=== PATIENT | female | born 1935 | race Caucasian/White ===

== ENCOUNTER 2018-01-02 19:08 | Emergency (ER) | payer MEDICARE, SELFPAY ==
[2018-01-02 20:07] LABS: #Basophils 0.1 thou/uL (0.0-0.2); #Eosinphils 0.1 thou/uL (0.0-0.7); #Monocytes 0.6 thou/uL (0.11-0.59); #Neutrophils 7.9 thou/uL (1.40-6.50); %Basophils 0.6 % (0.0-1.0); %Eosinophils 0.8 % (0.0-10.0); %Lymphocytes 10.4 % (21.0-51.0); %Monocytes 6.3 % (0.0-10.0); %Neutrophils 81.9 % (42.0-75.0); Hemoglobin 15.4 g/dL (12.0-16.0); Mean Corpuscular HGB CONC 34.3 g/dL (32.0-36.0); Mean Corpuscular Hemoglobin 31.5 pg (27.0-31.0); Mean Corpuscular Volume 91.8 fl (81.0-99.0); Mean Platelet Volume 10.8 fL (7.4-10.4); PLT Morphology Comment Appears Adequate; Platelet Count 119 thou/uL (130-400); RBC Distribution Width 12.6 % (11.5-14.5); Red Blood Cell (RBC) Count 4.89 mill/uL (4.20-5.40); White Blood Cell (WBC) Count 9.6 thou/uL (4.8-10.8)
[2018-01-02 20:11] LABS: ALT (SGPT) 17 U/L (8-55); AST (SGOT) 19 U/L (5-34); Albumin 3.9 g/dL (3.4-4.8); Alkaline Phosphatase 83 U/L (40-150); Anion Gap 15 mmol/L (10-20); BUN (Urea Nitrogen) 32 mg/dL (9.8-20.1); Bilirubin, Total 0.4 mg/dL (0.2-1.2); CK (CPK) 129 U/L (29-168); Calc. Creatinine Clearance 0 mL/min (70-130); Calcium 9.4 mg/dL (7.8-10.44); Carbon Dioxide 29 mmol/L (23-31); Chloride 103 mmol/L (98-107); Estimated GFR-MDRD 46; Globulin 3.5 g/dL (2.4-3.5); Glucose 159 mg/dL (83-110); Potassium 4.4 mmol/L (3.5-5.1); Protein, Total 7.4 g/dL (6.0-8.3); Sodium 143 mmol/L (136-145)
[2018-01-02 20:12] LABS: CKMB 2.3 ng/mL (0-6.6); Troponin I Less than 0.010 ng/mL (< 0.028)
--- NOTE | 2018-01-02 20:17 | CT ---
CT BRAIN WITHOUT CONTRAST: 01/02/18 HISTORY: Fall without loss of consciousness, dementia, aphasia. FINDINGS: Comparison is made with exam of 08/11/16. Changes of cortical atrophy and chronic small vessel ischemic disease are again seen. The ventricular size is stable and the basilar cisterns patent. no evidence of acute infarct, hemorrhage, midline sh ift or abnormal extra-axial fluid collections are seen. The bony calvarium is intact. The visualized paranasal sinuses and mastoid air cells are well aerated. IMPRESSION: Stable exam. No CT evidence of acute intracranial process. POS: [facility]
--- NOTE | 2018-01-02 20:19 | CT ---
CT CERVICAL SPINE WITH CORONAL AND SAGITTAL REFORMATIONS 01/02/18 HISTORY: Fall, neck pain. FINDINGS/IMPRESSION: There is loss of cervical lordosis with mild reversal. Multilevel degenerative changes are present. N o acute fracture is seen. There is minimal anterolisthesis of C4 over C5 vertebral bodies. POS: [facility]
--- NOTE | 2018-01-02 20:39 | RAD ---
LEFT HIP RADIOGRAPHS TWO VIEWS: 01/02/18 PROVIDED CLINICAL HISTORY: Fall. FINDINGS: Examination is somewhat limited due to lack of routine positioning. There is no evidence for fracture or other acute osseous abnormality. If there persistent clinical concern, conservative management an d followup imaging are advised. IMPRESSION: As above. POS: [facility]
--- NOTE | 2018-01-02 20:41 | RAD ---
PORTABLE CHEST 01/02/18 PROVIDED CLINICAL HISTORY: Fall. FINDINGS: Comparison 12/31/05. The cardiac and mediastinal silhouette is unchanged in appearance. Tortuosity of the thoracic aorta i s seen. Vascular calcification is prominent. No focal consolidation, pleural fluid or pneumothorax ap parent. IMPRESSION: No evidence for an acute cardiopulmonary process. POS: [facility]
[2018-01-02 21:10] LABS: Bilirubin Negative (Negative); Blood, Urine Moderate (Negative); Clarity Clear (Clear); Glucose, Urine (Dipstick) Negative (Negative); Leukocyte Trace (Negative); Nitrite Positive (Negative); Protein, Urine (Dipstick) Negative (Neg-Trace); Specific Gravity, Urine 1.015 (1.005-1.030); Urobilinogen 0.2 mg/dL (0.2-1.0)
[2018-01-02 21:14] LABS: Bacteria/HPF 3+ HPF (None Seen); Hyaline Casts/LPF 0-3 HYALINE CAST LPF (0-3 Hyaline); Squamous Epithelial 0-3 HPF (0-3)
[2018-01-02] MEDS ORDERED: Nitrofurantoin Macrocrystal 50 MG CAP ONE (21:50)
== END 2018-01-02 22:04 | disposition home or self-care (01) ==
LOC: SCSER 19:08
DX: S70.02XA Contusion of left hip, initial encounter (principal); N39.0 Urinary tract infection, site not specified; F03.90 Unspecified dementia, unspecified severity, without behavioral disturbance, psychotic disturbance, mood disturbance, and anxiety; E03.9 Hypothyroidism, unspecified; Z79.899 Other long term (current) drug therapy; W19.XXXA Unspecified fall, initial encounter
CPT/HCPCS: 51701; 70450; 71045; 72125; 80053; 81003; 81015; 82550; 82553; 83605; 84484; 85025; 87077; 87086; 87186; 93005; 96360; 96361; A4353

== ENCOUNTER 2018-02-26 09:24 | Emergency (ER) | payer MEDICARE ==
--- NOTE | 2018-02-26 11:11 | RAD ---
TWO VIEWS RIGHT TIBIA AND FIBULA: History: Fall last night with pain in the right leg. FINDINGS: Two views of the right tibia and fibula shows no evidence of acute fracture or dislocation. No degene rative change is seen in the knee or ankle. No focal soft tissue swelling is seen. IMPRESSION: Unremarkable exam. POS: [facility]
--- NOTE | 2018-02-26 11:13 | RAD ---
TWO VIEWS RIGHT FEMUR: Comparison: None. History: Fall last night with right femur pain? FINDINGS: Two views of the right femur shows no evidence of acute fracture or dislocation. No degenerative larkin ges are seen in the hip or knee. Vascular calcifications are present. IMPRESSION: NO evidence of acute osseous abnormality. POS: [facility]
--- NOTE | 2018-02-26 11:15 | RAD ---
THREE VIEWS OF THE RIGHT FOOT: Comparison: Right foot pain after fall last night. FINDINGS: Three views of the right foot shows no evidence of acute fracture or dislocation. There is first meta tarsal head hyperplasia and hallux valgus deformity of the great toe. No focal soft tissue swelling i s seen. IMPRESSION: No evidence of acute osseous abnormality. POS: [facility]
== END 2018-02-26 11:31 | disposition home or self-care (01) ==
LOC: SCSER 09:24
DX: S01.81XA Laceration without foreign body of other part of head, initial encounter (principal); E03.9 Hypothyroidism, unspecified; F03.90 Unspecified dementia, unspecified severity, without behavioral disturbance, psychotic disturbance, mood disturbance, and anxiety; Z79.899 Other long term (current) drug therapy; W19.XXXA Unspecified fall, initial encounter

== ENCOUNTER 2020-02-27 23:02 | Emergency (ER) | payer MEDICARE, MEDICAID ==
[2020-02-28] MEDS ORDERED: Ondansetron PF 4 MG/2 ML Vial ONE (00:02)
[2020-02-28 00:16] LABS: #Eosinphils 0.1 thou/uL (0.0-0.7); #Monocytes 0.9 thou/uL (0.11-0.59); #Neutrophils 3.9 thou/uL (1.40-6.50); %Basophils 0.4 % (0.0-1.0); %Eosinophils 1.7 % (0.0-10.0); %Lymphocytes 16.8 % (21.0-51.0); %Monocytes 14.6 % (0.0-10.0); %Neutrophils 66.5 % (42.0-75.0); Hemoglobin 15.3 g/dL (12.0-16.0); Mean Corpuscular HGB CONC 32.7 g/dL (32.0-36.0); Mean Corpuscular Hemoglobin 32.1 pg (27.0-31.0); Mean Corpuscular Volume 98.3 fL (78.0-98.0); Mean Platelet Volume 11.1 fL (7.4-10.4); Platelet Count 117 thou/uL (130-400); RBC Distribution Width 12.6 % (11.5-14.5); Red Blood Cell (RBC) Count 4.77 mill/uL (4.20-5.40); White Blood Cell (WBC) Count 5.8 thou/uL (4.8-10.8)
[2020-02-28 00:43] LABS: Bacteria/HPF 4+ HPF (None Seen); Bilirubin Negative (Negative); Blood, Urine Trace (Negative); Clarity Turbid (Clear); Glucose, Urine (Dipstick) Normal (Negative); Leukocyte 500 Leu/uL (Negative); Nitrite 2+ (Negative); Protein, Urine (Dipstick) 50 mg/dL (Neg-Trace); RBC/HPF 0-3 HPF (0-3); Urobilinogen Normal mg/dL (Less than 2); WBC/HPF Greater than 50 HPF (0-3)
[2020-02-28 00:53] LABS: ALT (SGPT) 13 U/L (8-55); AST (SGOT) 24 U/L (5-34); Albumin 3.7 g/dL (3.4-4.8); Alkaline Phosphatase 88 U/L (40-110); Anion Gap 14 mmol/L (10-20); BUN (Urea Nitrogen) 50 mg/dL (9.8-20.1); Bilirubin, Total 0.4 mg/dL (0.2-1.2); Calc. Creatinine Clearance 0 mL/min (70-130); Calcium 8.9 mg/dL (7.8-10.44); Carbon Dioxide 33 mmol/L (23-31); Chloride 104 mmol/L (98-107); Estimated GFR-MDRD 30; Globulin 4.2 g/dL (2.4-3.5); Glucose 138 mg/dL (83-110); Potassium 4.8 mmol/L (3.5-5.1); Protein, Total 7.9 g/dL (6.0-8.3); Sodium 146 mmol/L (136-145)
--- NOTE | 2020-02-28 07:37 | CT ---
PRELIMINARY REPORT/DIRECT RADIOLOGY/EMERGENCY AFTER HOURS PROCEDURE EXAM: CT Abdomen and Pelvis with Intravenous Contrast CLINICAL HISTORY: PT DAUGHTER STATES PT HAS BEEN VOMITING AND HAVING DIARRHEA SINCE LAINE DENIES FEV ER PCP TOLD PT TO COME IN AND SEE IF SHE NEEDS FLUIDS. COMPARISON: None provided. FINDINGS: LUNG BASES: Dependent hypoventilatory changes and linear atelectasis/scarring in the visualized lung bases. Coronary artery calcifications. LIVER: Small scattered liver hypodensities, which are either cystic or too small to accurately charac terize. GALLBLADDER AND BILE DUCTS: Cholelithiasis. No biliary ductal dilatation. PANCREAS: Top normal caliber pancreatic duct. No focal lesion. SPLEEN: Unremarkable. ADRENAL GLANDS: Small indeterminate left adrenal 2.3 cm nodule. KIDNEYS, URETERS, AND BLADDER: No obstructing radiopaque renal calculus or evidence of hydronephrosis . Small hypodense renal lesions bilaterally, which are either cystic or too small to accurately gay cterize. STOMACH AND BOWEL: Nonspecific fluid-filled slightly hyperemic loops of normal caliber small bowel. N o evidence of bowel obstruction. Moderate rectal fecal retention. Scattered colonic diverticula. Smal l hiatal hernia. APPENDIX: Not visualized. PERITONEUM: No free air or sizable fluid collection. REPRODUCTIVE: Fluid-filled endometrium measuring up to 7 mm in caliber, which is abnormal for a patie nt of this age. VASCULATURE: Severe aortoiliac atherosclerotic calcifications. Proximal infrarenal abdominal aortic a neurysm measuring up to 3.11 cm in caliber and distal infrarenal abdominal aortic aneurysm measuring up to 5.3 cm in caliber. BONES: Age-indeterminate T12 wedge compression fracture with adjacent mild central spinal narrowing. ABDOMINAL WALL AND SOFT TISSUES: Unremarkable. IMPRESSION: 1. Suggestion of low-grade enteritis. No evidence of bowel obstruction. Scattered colonic diverticula . 2. Cholelithiasis. No biliary ductal dilatation. 3. Age-indeterminate T12 wedge compression fracture with adjacent mild central spinal narrowing. 4. Fluid-filled endometrium measuring up to 7 mm in caliber, which is abnormal for a patient of this age. Nonemergent pelvic ultrasound can be performed for further characterization. 5. Infrarenal 3.1 cm and 5.3 cm caliber aortic aneurysms. Follow-up CTA abdomen-pelvis is recommended in 3-6 months. See final report for any additional/alternative nonemergent follow-up recommendations . 6. Small indeterminate left adrenal 2.3 cm nodule. Nonemergent dedicated CT/MRI abdomen can be perfo rmed for further characterization. ELECTRONICALLY SIGNED BY: Fermin Pratt MD Feb 28, 2020 2:29:55 AM CDT FINAL REPORT I agree with the preliminary report provided. There is an infrarenal abdominal aortic aneurysm measuring 5.4 cm. There are bilateral renal cysts. There is a left adrenal nodule that is incompletely characterized on the current exam. There are scattered hepatic cysts. The spleen is normal-appearing. The visualized aspects of the pa ncreas appear within normal limits. There are multiple gallstones within the gallstones. The small bowel is of normal caliber. There is a mild amount of retained stool within the colon. Low-density fluid is seen within the endometrium which is unusual for a patient of this age. Followu p pelvic ultrasound may be helpful. There is also some slight accentuation of the left adnexa that r equires further interrogation. The bladder is partially decompressed. The T12 compression fracture detailed above that was present on a comparison chest radiograph from [facility] of 2018 is chronic. POS:
[2020-02-28] MEDS ORDERED: Iopamidol-370 76% 500 ML 1 ML ONE (15:27)
== END 2020-02-28 03:55 | disposition home or self-care (01) ==
LOC: ERS 23:02
DX: N39.0 Urinary tract infection, site not specified (principal); E86.0 Dehydration; R19.7 Diarrhea, unspecified; E03.9 Hypothyroidism, unspecified; F03.90 Unspecified dementia, unspecified severity, without behavioral disturbance, psychotic disturbance, mood disturbance, and anxiety; R11.2 Nausea with vomiting, unspecified; Z87.891 Personal history of nicotine dependence; Z79.899 Other long term (current) drug therapy
CPT/HCPCS: 36415; 51701; 74177; 80053; 81003; 81015; 83690; 85025; 87040; 87077; 87086; 87186; 93005; 96361; 96365; 96375; J1956; J2405; Q9967

== ENCOUNTER 2020-05-07 22:18 | Emergency (ER) | payer MEDICARE, OTHER ==
[2020-05-07 22:54] LABS: #Basophils 0.1 thou/uL (0.0-0.2); #Eosinphils 0.2 thou/uL (0.0-0.7); #Lymphocytes 1.8 thou/uL (1.20-3.40); #Monocytes 0.7 thou/uL (0.11-0.59); #Neutrophils 3.9 thou/uL (1.40-6.50); %Eosinophils 3.5 % (0.0-10.0); %Lymphocytes 26.5 % (21.0-51.0); %Neutrophils 57.9 % (42.0-75.0); Hemoglobin 13.9 g/dL (12.0-16.0); Mean Corpuscular HGB CONC 32.9 g/dL (32.0-36.0); Mean Corpuscular Hemoglobin 31.8 pg (27.0-31.0); Mean Corpuscular Volume 96.8 fL (78.0-98.0); Platelet Count 125 thou/uL (130-400); RBC Distribution Width 12.4 % (11.5-14.5); Red Blood Cell (RBC) Count 4.38 mill/uL (4.20-5.40); White Blood Cell (WBC) Count 6.6 thou/uL (4.8-10.8)
[2020-05-07 22:55] LABS: Bilirubin Negative (Negative); Blood, Urine Negative (Negative); Clarity Clear (Clear); Glucose, Urine (Dipstick) Normal (Negative); Ketone, Urine Negative (Negative); Leukocyte Negative Leu/uL (Negative); Nitrite Negative (Negative); Protein, Urine (Dipstick) Negative (Neg-Trace); Specific Gravity, Urine 1.022 (1.002-1.036); Urobilinogen Normal mg/dL (Less than 2)
[2020-05-07 23:16] LABS: ALT (SGPT) 11 U/L (8-55); AST (SGOT) 15 U/L (5-34); Albumin 3.4 g/dL (3.4-4.8); Alkaline Phosphatase 71 U/L (40-110); Anion Gap 14 mmol/L (10-20); BUN (Urea Nitrogen) 38 mg/dL (9.8-20.1); Bilirubin, Total 0.3 mg/dL (0.2-1.2); Calc. Creatinine Clearance 0 mL/min (70-130); Calcium 8.5 mg/dL (7.8-10.44); Carbon Dioxide 29 mmol/L (23-31); Chloride 102 mmol/L (98-107); Estimated GFR-MDRD 44; Globulin 3.3 g/dL (2.4-3.5); Glucose 89 mg/dL (83-110); Potassium 4.7 mmol/L (3.5-5.1); Protein, Total 6.7 g/dL (6.0-8.3); Sodium 140 mmol/L (136-145)
== END 2020-05-08 00:34 | disposition home or self-care (01) ==
LOC: ERS 22:18
DX: R53.1 Weakness (principal); G30.9 Alzheimer's disease, unspecified; F02.80 Dementia in other diseases classified elsewhere, unspecified severity, without behavioral disturbance, psychotic disturbance, mood disturbance, and anxiety; E03.9 Hypothyroidism, unspecified; Z87.891 Personal history of nicotine dependence; Z79.899 Other long term (current) drug therapy
CPT/HCPCS: 51701; 80053; 81003; 83605; 84484; 85025; 87086; 93005; 96360

== ENCOUNTER 2021-09-17 08:04 | Outpatient (CLI) | payer MEDICARE | END 2021-09-17 08:05 | disposition home or self-care (01) | LOC: BICULT 08:04 | PROVIDERS: ATTEND Family Medicine | DX: Z13.6 Encounter for screening for cardiovascular disorders (principal); I71.4 Abdominal aortic aneurysm, without rupture | CPT/HCPCS: 76775 ==

== ENCOUNTER 2021-09-30 14:05 | Inpatient (IN) | payer MEDICARE, OTHER ==
[~2021-09-30 14:05] MED LIST: Iopamidol 370 76% 50 ML VIAL FS ONE
[2021-09-30 15:19] LABS: #Eosinphils 0.1 thou/uL (0.0-0.7); #Lymphocytes 0.7 thou/uL (1.20-3.40); #Monocytes 0.4 thou/uL (0.11-0.59); #Neutrophils 8.1 thou/uL (1.40-6.50); %Basophils 0.1 % (0.0-1.0); %Lymphocytes 7.6 % (21.0-51.0); %Monocytes 4.1 % (0.0-10.0); %Neutrophils 87.2 % (42.0-75.0); Hemoglobin 14.3 g/dL (12.0-16.0); Mean Corpuscular HGB CONC 32.2 g/dL (32.0-36.0); Mean Corpuscular Hemoglobin 31.3 pg (27.0-31.0); Mean Corpuscular Volume 97.1 fL (78.0-98.0); Platelet Count 121 thou/uL (130-400); RBC Distribution Width 12.1 % (11.5-14.5); Red Blood Cell (RBC) Count 4.58 mill/uL (4.20-5.40); White Blood Cell (WBC) Count 9.3 thou/uL (4.8-10.8)
[2021-09-30 15:45] LABS: ALT (SGPT) 8 U/L (8-55); AST (SGOT) 14 U/L (5-34); Albumin 3.6 g/dL (3.4-4.8); Alkaline Phosphatase 89 U/L (40-110); Anion Gap 16 mmol/L (10-20); BUN (Urea Nitrogen) 15 mg/dL (9.8-20.1); Bilirubin, Total 0.6 mg/dL (0.2-1.2); Calc. Creatinine Clearance 0 mL/min (70-130); Calcium 8.9 mg/dL (7.8-10.44); Carbon Dioxide 26 mmol/L (23-31); Chloride 100 mmol/L (98-107); Globulin 3.5 g/dL (2.4-3.5); Glucose 160 mg/dL (83-110); Lipase 45 U/L (8-78); Magnesium 1.9 mg/dL (1.6-2.6); Potassium 4.8 mmol/L (3.5-5.1); Protein, Total 7.1 g/dL (5.8-8.1); Sodium 137 mmol/L (136-145)
[2021-09-30 16:01] LABS: Bilirubin Negative (Negative); Blood, Urine 2+ (Negative); Clarity Extra Turbid (Clear); Glucose, Urine (Dipstick) Normal (Negative); Ketone, Urine Negative (Negative); Leukocyte 500 Leu/uL (Negative); Nitrite 2+ (Negative); Protein, Urine (Dipstick) 50 mg/dL (Neg-Trace); Specific Gravity, Urine 1.016 (1.002-1.036); Urobilinogen Normal mg/dL (Less than 2)
[2021-09-30 16:08] LABS: WBC/HPF Greater Than 50 HPF (0-3)
[2021-09-30 16:09] LABS: Bacteria/HPF 4+ HPF (None Seen); Squamous Epithelial 0-3 HPF (0-3)
[2021-09-30] MEDS ORDERED: cefTRIAXone\\ROCEPHIN 1 GM VIAL ONE (17:34)
[2021-09-30] MEDS ORDERED: Vancomycin 1 GM/200 ML BAG ONE (17:34)
[2021-09-30] MEDS ORDERED: Boudreaux's Butt Paste 60 GM TUBE TOP PRN (19:42)
[2021-09-30] MEDS ORDERED: hydrALAZINE 20 MG/ML VIAL SLOW IVP PRN (19:43)
[2021-09-30] MEDS ORDERED: Dextrose 5% in Water 1,000 ML IV PRN (19:45)
[2021-09-30] MEDS ORDERED: Dextrose 50% Abboject 50 ML SYRINGE SLOW IVP PRN (19:45)
[2021-09-30] MEDS ORDERED: Electrolyte Replacement Protocol 1 EACH FS SCH (19:45)
[2021-09-30] MEDS ORDERED: Acetaminophen 650 MG Suppository PR PRN (19:46)
[2021-09-30] MEDS ORDERED: Ondansetron PF 4 MG/2 ML Vial IVP PRN (19:46)
[2021-09-30] MEDS ORDERED: Acetaminophen 325 MG TAB PO PRN (19:46)
[2021-09-30] MEDS ORDERED: Ondansetron ODT 4 MG TAB PO PRN (19:46)
[2021-09-30] MEDS ORDERED: Magnesium 2 GM/50 ML 2 GM in Premix Bag 1 BAG IVPB SCH (20:00)
[2021-09-30 22:24] LABS: SARS-CoV-2 NAA Rapid Test Not Detected (NotDetected)
[2021-10-01 01:08] VITALS: BMI 21.4
[2021-10-01] MEDS: Sodium Chloride 0.9% 1,000 ML IV SCH ×2 (01:21→21:38)
[2021-10-01] MEDS: Pantoprazole 40 MG VIAL IVP SCH ×3 (01:21→21:38)
[2021-10-01] MEDS: Levothyroxine Sodium 50 MCG TAB PO SCH (05:48)
[2021-10-01 06:28] LABS: #Eosinphils 0.1 thou/uL (0.0-0.7); #Lymphocytes 0.7 thou/uL (1.20-3.40); #Monocytes 0.5 thou/uL (0.11-0.59); #Neutrophils 4.2 thou/uL (1.40-6.50); %Basophils 0.3 % (0.0-1.0); %Eosinophils 1.7 % (0.0-10.0); %Lymphocytes 12.8 % (21.0-51.0); %Monocytes 8.6 % (0.0-10.0); %Neutrophils 76.6 % (42.0-75.0); Hemoglobin 12.6 g/dL (12.0-16.0); Mean Corpuscular HGB CONC 32.6 g/dL (32.0-36.0); Mean Corpuscular Hemoglobin 31.4 pg (27.0-31.0); Mean Corpuscular Volume 96.2 fL (78.0-98.0); Mean Platelet Volume 10.1 fL (7.4-10.4); Platelet Count 105 thou/uL (130-400); RBC Distribution Width 11.9 % (11.5-14.5); Red Blood Cell (RBC) Count 4.02 mill/uL (4.20-5.40); White Blood Cell (WBC) Count 5.5 thou/uL (4.8-10.8)
[2021-10-01 06:48] LABS: Anion Gap 10 mmol/L (10-20); BUN (Urea Nitrogen) 14 mg/dL (9.8-20.1); Calc. Creatinine Clearance 36 mL/min (70-130); Calcium 8.2 mg/dL (7.8-10.44); Carbon Dioxide 28 mmol/L (23-31); Chloride 100 mmol/L (98-107); Glucose 84 mg/dL (83-110); Magnesium 2.5 mg/dL (1.6-2.6); Potassium 3.9 mmol/L (3.5-5.1); Sodium 134 mmol/L (136-145)
[2021-10-01] MEDS ORDERED: Enoxaparin Sodium 30 MG/0.3 ML SYRINGE SC SCH (09:00)
[2021-10-01] MEDS: cefTRIAXone\\ROCEPHIN 1 GM in Sodium Chloride 0.9% 100 ML IVPB SCH (16:21)
[2021-10-01] MEDS ORDERED: Vancomycin HCl 750 MG in Sodium Chloride 0.9% 250 ML 250 ML IVPB SCH (20:00)
[2021-10-02] MEDS: Levothyroxine Sodium 50 MCG TAB PO SCH (05:56)
[2021-10-02 06:42] LABS: Chloride 108 mmol/L (98-107); Potassium 4.2 mmol/L (3.5-5.1); Sodium 136 mmol/L (136-145)
[2021-10-02 07:09] LABS: #Eosinphils 0.3 thou/uL (0.0-0.7); #Lymphocytes 1.4 thou/uL (1.20-3.40); #Monocytes 0.6 thou/uL (0.11-0.59); #Neutrophils 2.5 thou/uL (1.40-6.50); %Basophils 0.7 % (0.0-1.0); %Eosinophils 6.4 % (0.0-10.0); %Lymphocytes 27.9 % (21.0-51.0); %Monocytes 13.2 % (0.0-10.0); %Neutrophils 51.8 % (42.0-75.0); Hemoglobin 12.1 g/dL (12.0-16.0); Mean Corpuscular HGB CONC 31.7 g/dL (32.0-36.0); Mean Corpuscular Hemoglobin 32.5 pg (27.0-31.0); Mean Platelet Volume 10.4 fL (7.4-10.4); Platelet Count 91 thou/uL (130-400); Platelet Morphology Comment Appears Decreased; RBC Distribution Width 12.1 % (11.5-14.5); RBC Morphology Normal; Red Blood Cell (RBC) Count 3.74 mill/uL (4.20-5.40); White Blood Cell (WBC) Count 4.9 thou/uL (4.8-10.8)
[2021-10-02 07:11] LABS: Anion Gap 14 mmol/L (10-20); BUN (Urea Nitrogen) 13 mg/dL (9.8-20.1); Calc. Creatinine Clearance 40 mL/min (70-130); Calcium 7.9 mg/dL (7.8-10.44); Carbon Dioxide 18 mmol/L (23-31); Glucose 75 mg/dL (83-110)
[2021-10-02] MEDS: Enoxaparin Sodium 40 MG/0.4 ML SYRINGE SC SCH (08:57)
[2021-10-02] MEDS: Pantoprazole 40 MG VIAL IVP SCH ×2 (08:57→20:53)
[2021-10-02] MEDS: cefTRIAXone\\ROCEPHIN 1 GM in Sodium Chloride 0.9% 100 ML IVPB SCH (18:10)
[2021-10-02 19:33] LABS: Vancomycin, Trough 9.3 ug/mL
[2021-10-02] MEDS: Sodium Chloride 0.9% 1,000 ML IV SCH (20:33)
[2021-10-03] MEDS: Levothyroxine Sodium 50 MCG TAB PO SCH (05:48)
[2021-10-03 09:16] VITALS: BP 152/72; TEMP 98.3
[2021-10-03] MEDS: Sodium Chloride 0.9% 1,000 ML IV SCH (10:34)
[2021-10-03] MEDS: Enoxaparin Sodium 40 MG/0.4 ML SYRINGE SC SCH ×2 (10:35→10:37)
[2021-10-03] MEDS: Pantoprazole 40 MG VIAL IVP SCH (10:35)
[2021-10-03] MEDS ORDERED: Nitrofurantoin Monohyd/M-Cryst 100 MG CAP PO SCH (21:00)
== END 2021-10-03 18:37 | DRG 690 ==
LOC: ERS 14:05 → ERHOLD 17:37 → MSONC 10-01 00:30
PROVIDERS: ADMIT Internal Medicine; ATTEND Internal Medicine
DX: N39.0 Urinary tract infection, site not specified (principal); F02.81 Dementia in other diseases classified elsewhere, unspecified severity, with behavioral disturbance; Z66 Do not resuscitate; Z20.822 Contact with and (suspected) exposure to COVID-19; Z51.5 Encounter for palliative care; B96.20 Unspecified Escherichia coli [E. coli] as the cause of diseases classified elsewhere; E03.9 Hypothyroidism, unspecified; G30.9 Alzheimer's disease, unspecified; I71.4 Abdominal aortic aneurysm, without rupture; Z88.2 Allergy status to sulfonamides; Z79.890 Hormone replacement therapy; Z90.49 Acquired absence of other specified parts of digestive tract; Z87.891 Personal history of nicotine dependence
CPT/HCPCS: 36415; 36416; 71045; 74177; 80048; 80053; 80202; 81003; 81015; 83690; 83735; 83880; 84484; 85025; 87040; 87077; 87086; 87186; 93005; C9113; J0696; J1650; J3370; J3475; J3490; J7050; Q9967; U0002; U0003; U0005